=== PATIENT | male | born 2000 | race Caucasian/White ===

== ENCOUNTER 2021-01-16 07:28 | Outpatient (REF) | payer OTHER, SELFPAY ==
[2021-01-16 08:04] LABS: COVID-19 Test Positive (Negative)
== END 2021-01-16 07:29 | disposition home or self-care (01) ==
LOC: HO.LAB 07:28
PROVIDERS: Visit Provider Internal Medicine
DX: Z20.822 Contact with and (suspected) exposure to COVID-19 (principal)
CPT/HCPCS: 36415; 87635; C9803; U0003; U0005

== ENCOUNTER → 2022-10-29 11:05 | Outpatient (BNVA) | payer OTHER, SELFPAY | PROVIDERS: Visit Provider Internal Medicine | DX: S01.112A Laceration without foreign body of left eyelid and periocular area, initial encounter (principal); X50.3XXA Overexertion from repetitive movements, initial encounter | CPT/HCPCS: 70486; 99203 ==

== ENCOUNTER 2024-08-03 18:22 | Emergency (ER) | payer OTHER, SELFPAY ==
--- NOTE | ~2024-08-03 | XR_ITS ---
CLINICAL HISTORY: trauma 3 view left shoulder Comparison: None Findings: No displaced fractures or dislocations. No significant arthritic change. Mild atelectasis partially imaged. Zipper opacities partially imaged. IMPRESSION: 1. No acute fracture or dislocation of the left shoulder. This document has been electronically signed by: Erwin Stock MD on 08/03/2024 19:11:51
--- NOTE | 2024-08-03 18:30 | ED_ITS ---
HPI - General Adult General Chief complaint: Extremity Injury, Upper Stated complaint: fall dislocated shoulder while working ([employer] Time Seen by Provider: 08/03/24 20:46 Source: patient Limitations: no limitations History of Present Illness ED Provider: Aniya Araujo PA-C HPI narrative: 23-year-old male who presents with left shoulder pain. Patient was working out lifting weights, when he felt a pop in the left shoulder, he thought it was dislocated. The patient states he ?popped his shoulder back into place?. Patient now has limited range of motion of the shoulder. Denies paresthesia. Related Data Allergies Allergy/AdvReac Type Severity Reaction Status Date / Time No Known Allergies Allergy Verified 08/03/24 18:33 Review of Systems Review of Systems: Yes all other systems are reviewed and are negative Constitutional: Constitutional: Denies fatigue and Denies fever(s) Musculoskeletal: Musculoskeletal: Reports arthralgias, Denies joint swelling, Denies numbness and Denies tingling Neurologic: Denies numbness and Denies tingling Endocrine: Endocrine: Denies fatigue PMFSH Past Medical History Attestation statement: The following information was validated with the patient. Physical Exam ED Vital Signs: Vital Signs - 24 hr 08/03/24 18:31 Temperature 97.9 F Pulse Rate 84 Respiratory Rate 18 Blood Pressure 139/80 Pulse Oximetry 98 Oxygen Delivery Method Room Air BMI result Body Mass Index 29.3 Const Other: Alert Orientation/consciousness: patient oriented x3 Resp Effort & Inspection: normal respiratory effort Cardio Other: Normal peripheral perfusion Skin Other: Warm dry no rash Neuro General: patient oriented x3, gait normal, no focal motor deficits and CN's II- XI intact bilaterally Extrem Other: Able to fully flex and extend from the elbow, able to perform lateral raise, range of motion has improved since his arrival, pain elicited with range of motion. Psych Other: Cooperative Course Course Course Narrative: This is a rapid medical exam performed by Aniya Araujo PA-C. Patient is a 23-year-old male who presents with left shoulder pain. Patient was working out lifting weights, when he felt a pop in the left shoulder, he thought it was dislocated. The patient states he ?popped his shoulder back into place?. Patient now has limited range of motion in lateral raise. We will be obtaining an x-ray. The patient is stable and can return to the waiting room pending his full medical assessment. Medical Decision Making Medical Decision Making MDM Narrative: 23-year-old male who presents with left shoulder pain. Patient was working out lifting weights, when he felt a pop in the left shoulder, he thought it was dislocated. The patient states he ?popped his shoulder back into place?. Patient now has limited range of motion of the shoulder. Denies paresthesia. No chronic issues History: Per patient I have considered the following differential diagnoses: Fracture, dislocation, sprain Plan: X-ray obtained from triage, there was no fracture or dislocation. The patient has a sprain. I discussed with the patient that if he does not have significant improvement, he may need advanced imaging in the way of an MRI, that this would occur as an outpatient. On the x-ray, the lung field that was captured, revealed concern for opacity versus atelectasis. I discussed these findings with the patient, I recommended a dedicated chest x-ray, he declines at this time. I have independently reviewed the following tests: X-ray left shoulder:Findings: No displaced fractures or dislocations. No significant arthritic change. Mild atelectasis partially imaged. Zipper opacities partially imaged. IMPRESSION: 1. No acute fracture or dislocation of the left shoulder. This document has been electronically signed by: Erwin Stock MD on 08/03/2024 19:11:51 Discharge Plan Discharge Clinical Impression: Sprain of left shoulder Patient Disposition: Home, Self-Care Instructions: Shoulder Sprain (ED) Additional Instructions: The x-ray of the shoulder was negative for fracture or dislocation. You have a sprain. See home care instructions. The radiologist made a comment that you may have opacities in the lung field that was captured on the shoulder x-ray, it was recommended that you have a chest x-ray. I would make an appointment to do so sooner rather than later. Stand Alone Forms: Work/School Release Print Language: Romansh
[2024-08-03 18:31] VITALS: BP 139/80; PULSE 84; RESP 18; TEMP 36.6; O2SAT 98; BMI 29.3
[2024-08-03 20:51] VITALS: BP 139/80; PULSE 84; RESP 18; TEMP 36.6; O2SAT 98
== END 2024-08-03 21:05 | disposition home or self-care (01) ==
PROVIDERS: Emergency Provider Internal Medicine
DX: S43.402A Unspecified sprain of left shoulder joint, initial encounter (principal); X50.0XXA Overexertion from strenuous movement or load, initial encounter; Y93.B3 Activity, free weights; Y92.39 Other specified sports and athletic area as the place of occurrence of the external cause; Y99.8 Other external cause status
CPT/HCPCS: 73030; 99282; 99283

== ENCOUNTER → 2024-08-03 18:28 | Outpatient (BNV) | payer OTHER, SELFPAY | PROVIDERS: Visit Provider Radiology Neuroradiology | DX: M25.512 Pain in left shoulder (principal); Z04.2 Encounter for examination and observation following work accident | CPT/HCPCS: 73030 ==